=== PATIENT | female | born 1980 | race Caucasian/White ===

== ENCOUNTER 2024-05-14 15:37 | Emergency (ER) | payer BC ==
[2024-05-14 16:18] LABS: BASOPHILS ABSOLUTE AUTO 0.04 K/uL (0.00-0.10); BASOPHILS PERCENT AUTO 0.5 % (0.1-1.3); EOSINOPHILS ABSOLUTE AUTO 0.17 K/uL (0.00-0.40); HEMOGLOBIN 14.9 g/dL (11.2-15.5); IMMATURE GRAN ABSOLUTE AUTO 0.03 K/uL (0.00-0.23); IMMATURE GRAN PERCENT AUTO 0.4 % (0.0-0.7); LYMPHOCYTES ABSOLUTE AUTO 1.69 K/uL (0.8-3.3); LYMPHOCYTES PERCENT AUTO 19.7 % (11.4-47.7); MEAN CORPUSCULAR HEMOGLOBIN 32.1 pg (31.6-35.5); MEAN CORPUSCULAR HGB CONC 34.7 g/dL (31.6-35.5); MEAN CORPUSCULAR VOLUME 92.7 fL (81.4-99.0); MONOCYTES ABSOLUTE AUTO 0.42 K/uL (0.20-0.90); MONOCYTES PERCENT AUTO 4.9 % (3.3-12.6); NEUTROPHILS ABSOLUTE AUTO 6.21 K/uL (1.0-7.6); NEUTROPHILS PERCENT AUTO 72.5 % (40.0-78.1); PLATELET COUNT,PLT 264 K/uL (130-375); RED BLOOD CELL COUNT 4.64 M/uL (3.77-5.24); WHITE BLOOD CELL COUNT,WBC 8.6 K/uL (3.2-11.0)
[2024-05-14] MEDS: Alum Hydrox/Mag Hydrox/Simeth 15 ML, Lidocaine 2% 15 ML PO ONE (16:40)
[2024-05-14 16:41] LABS: A/G RATIO 1.1 (1.2-2.2); ALANINE AMINOTRANSFERASE,ALT 43 U/L (12-78); ALBUMIN 3.8 g/dL (3.4-5.0); ALKALINE PHOSPHATASE 88 U/L (46-116); ANION GAP 11.4 mmol/L (5.0-14.0); ASPARTATE AMNIOTRANSFERASE,AST 40 U/L (15-37); BILIRUBIN TOTAL 0.5 mg/dL (0.2-1.0); BLOOD UREA NITROGEN,BUN 11 mg/dL (7-18); CALCIUM 8.9 mg/dL (8.5-10.1); CARBON DIOXIDE,CO2 25 mmol/L (21-32); CHLORIDE,CL 106 mmol/L (100-108); CREATININE 0.9 mg/dL (0.6-1.0); EST CRCL DRUG DOSING (CG) 88.95 mL/min; ESTIMATED GFR 82 mL/min (>60); GLUCOSE RANDOM 97 mg/dL (74-106); POTASSIUM,K 3.6 mmol/L (3.6-5.2); PROTEIN TOTAL,TP 7.3 g/dL (6.4-8.2); SODIUM,NA 142 mmol/L (140-148)
[2024-05-14 16:43] LABS: TROPONIN I HIGH SENSITIVITY < 4.0 pg/mL (<=60.3)
== END 2024-05-14 17:07 | disposition home or self-care (01) ==
LOC: JP.ED 15:37
DX: R12 Heartburn (principal); F17.210 Nicotine dependence, cigarettes, uncomplicated; Z88.2 Allergy status to sulfonamides; Z79.899 Other long term (current) drug therapy
CPT/HCPCS: 36415; 80053; 83690; 84484; 85025; 99284; A9270